=== PATIENT | female | born 1960 | race Caucasian/White ===

== ENCOUNTER 2018-08-17 01:38 | Inpatient (IN) | payer OTHER ==
[~2018-08-17] VITALS: Ht 167.6 cm; Wt 112.4 kg
[2018-08-17] MEDS ORDERED: PRED10TA PO (02:07)
[2018-08-17] MEDS ORDERED: TIZA2TAB PO (02:07)
[2018-08-17] MEDS ORDERED: OXYC1TAB8 PO (02:07)
[2018-08-17] MEDS ORDERED: GABA600T2 PO (02:07)
[2018-08-17 02:26] LABS: MEAN CORPUSCULAR HEMOGLOBIN 31.8 pg (27.0-34.8); MEAN CORPUSCULAR HGB CONC 34.3 g/dL (32.4-35.8); MEAN CORPUSCULAR VOLUME 92.6 fL (80-100); MEAN PLATELET VOLUME 7.5 fL (7.4-10.4); PLATELET COUNT 223 x10^3/uL (130-400); RED BLOOD COUNT 4.29 x10^6/uL (3.82-5.3); RED CELL DISTRIBUTION WIDTH 13.1 % (9.6-15.2)
[2018-08-17 02:30] LABS: INTERNATIONAL NORMALIZED RATIO 1.38 (0.93-1.1); PROTHROMBIN TIME 14.4 Seconds (9.6-11.5)
[2018-08-17 02:33] LABS: ALANINE AMINOTRANSFERASE 14 U/L (12-78); ALBUMIN 2.7 g/dL (3.4-5.0); ANION GAP 18 mmol/L (5-15); CALCIUM 8.4 mg/dL (8.5-10.1); CHLORIDE 96 mmol/L (98-107); CREATININE 2.45 mg/dL (0.55-1.02)
[2018-08-17 02:37] LABS: ALKALINE PHOSPHATASE 70 U/L (45-117); TOTAL PROTEIN 6.6 g/dL (6.4-8.2); TROPONIN I < 0.015 ng/mL (0.000-0.045)
[2018-08-17 03:20] LABS: MD YES
[2018-08-17 03:23] LABS: BANDS%(MANUAL) 7 % (0-7); LYMPH#(MANUAL) 1.93 x10^3/uL (1-3.4); LYMPHS% (MANUAL) 9 % (22-44); METAMYELOCYTES# (MANUAL) 0.21 x10^3/uL (0-0); METAMYELOCYTES% (MANUAL) 1 % (0-1); MONOS#(MANUAL) 1.07 x10^3/uL (0.3-2.7); MONOS% (MANUAL) 5 % (2-9); SEG#(MANUAL) 16.69 x10^3/uL (1.8-6.8); SEGS% (MANUAL) 78 % (42-75)
[2018-08-17 03:24] LABS: <PLATELET ESTIMATE> ADEQUATE; <PLT MORPHOLOGY> NORMAL PLT MORPH; ANISOCYTOSIS 1+; POLYCHROMASIA 1+
[2018-08-17] MEDS ORDERED: SODIUM CHLORIDE 0.9% 1,000 ML IV ONE (04:01)
[2018-08-17] MEDS ORDERED: MORPHINE SULFATE 4 MG/ML, 1ML IVPush PRN (04:30)
[2018-08-17] MEDS ORDERED: ONDANSETRON 2MG/ML, 2ML IVPush PRN ×2 (04:30→05:30)
[2018-08-17] MEDS: SODIUM CHLORIDE 0.9% 1,000 ML IV SCH ×3 (05:12→21:00)
[2018-08-17] MEDS: METRONIDAZOLE PMX 500MG/100ML 100 ML IV SCH ×3 (05:30→21:00)
[2018-08-17] MEDS ORDERED: DOCUSATE 100 MG CAPSULE PO PRN (05:30)
[2018-08-17] MEDS ORDERED: GUAIFENESIN/COD200MG-20MG/10ML LIQUID PO PRN (05:30)
[2018-08-17] MEDS ORDERED: hydrALAzine 20 MG/ML, 1ML IVPush PRN (05:30)
[2018-08-17] MEDS ORDERED: ACETAMINOPHEN 325 MG TABLET PO PRN (05:30)
[2018-08-17] MEDS: CEFTRIAXONE PMX 2GM/50ML 50 ML IV SCH (05:30)
[2018-08-17] MEDS ORDERED: morphine SULFATE 10 MG/ML, 1ML IVPush PRN (05:30)
[2018-08-17] MEDS: POTASSIUM CHLORIDE 20 MEQ TAB.ER.PRT PO SCH ×2 (06:00→09:07)
[2018-08-17 06:25] VITALS: BP 95/61
[2018-08-17] MEDS ORDERED: TEMPLATE NON-FORMULARY MED. (Gabapentin** 600 MG) PO SCH (09:00)
[2018-08-17] MEDS ORDERED: SODIUM CHLORIDE 0.9% 1,000ML IVBOLUS ONE (09:00)
[2018-08-17] MEDS: TIZANIDINE 2MG TABLET PO SCH (09:00)
[2018-08-17 13:25] VITALS: BP 98/67
[2018-08-17 15:24] LABS: CLOSTRIDIUM DIFFICILE ANTIGEN NEGATIVE; CLOSTRIDIUM DIFFICILE TOXIN NEGATIVE (Negative)
[2018-08-17 16:09] LABS: MICROSCOPIC INDICATED
[2018-08-17 16:30] LABS: ANION GAP 16 mmol/L (5-15); CALCIUM 8.4 mg/dL (8.5-10.1); CHLORIDE 104 mmol/L (98-107); CREATININE 1.76 mg/dL (0.55-1.02)
[2018-08-17 16:50] LABS: CULTURE INDICATED? NO
[2018-08-17] MEDS ORDERED: MOVIPREP POWDER 1 PREP KIT PO ONE (17:00)
[2018-08-17 19:31] VITALS: BP 101/67
[2018-08-18 02:17] VITALS: BP 102/68
[2018-08-18] MEDS: SODIUM CHLORIDE 0.9% 1,000 ML IV SCH ×2 (03:40→08:54)
[2018-08-18] MEDS: CEFTRIAXONE PMX 2GM/50ML 50 ML IV SCH (05:12)
[2018-08-18 05:34] LABS: ANION GAP 12 mmol/L (5-15); CALCIUM 8.1 mg/dL (8.5-10.1); CHLORIDE 108 mmol/L (98-107); CREATININE 1.01 mg/dL (0.55-1.02)
[2018-08-18 05:36] LABS: MEAN CORPUSCULAR HEMOGLOBIN 32.2 pg (27.0-34.8); MEAN CORPUSCULAR HGB CONC 34.7 g/dL (32.4-35.8); MEAN CORPUSCULAR VOLUME 92.8 fL (80-100); MEAN PLATELET VOLUME 7.5 fL (7.4-10.4); PLATELET COUNT 178 x10^3/uL (130-400); RED BLOOD COUNT 3.62 x10^6/uL (3.82-5.3); RED CELL DISTRIBUTION WIDTH 13.3 % (9.6-15.2)
[2018-08-18] MEDS: METRONIDAZOLE PMX 500MG/100ML 100 ML IV SCH ×3 (05:57→21:31)
[2018-08-18 06:02] LABS: MD YES
[2018-08-18 06:03] LABS: EOS#(MANUAL) 0.13 x10^3/uL (0.0-0.4); EOS% (MANUAL) 1 % (1-7); LYMPH#(MANUAL) 1.63 x10^3/uL (1-3.4); LYMPHS% (MANUAL) 13 % (22-44); MONOS#(MANUAL) 0.75 x10^3/uL (0.3-2.7); MONOS% (MANUAL) 6 % (2-9); MYELOCYTES# (MANUAL) 0.25 x10^3/uL (0-0); MYELOCYTES% (MANUAL) 2 % (0-0); SEG#(MANUAL) 8.38 x10^3/uL (1.8-6.8); SEGS% (MANUAL) 67 % (42-75)
[2018-08-18 06:04] LABS: BAND#(MANUAL) 1.25 x10^3/uL; BANDS%(MANUAL) 10 % (0-7); METAMYELOCYTES# (MANUAL) 0.13 x10^3/uL (0-0); METAMYELOCYTES% (MANUAL) 1 % (0-1)
[2018-08-18 06:06] LABS: ANISOCYTOSIS 1+; POLYCHROMASIA 1+
[2018-08-18 06:07] LABS: <PLATELET ESTIMATE> ADEQUATE; <PLT MORPHOLOGY> NORMAL PLT MORPH
[2018-08-18 08:23] VITALS: BP 105/70
[2018-08-18] MEDS: TIZANIDINE 2MG TABLET PO SCH (08:54)
[2018-08-18] MEDS ORDERED: POTASSIUM PHOSPHATE 44 MEQ in SODIUM CHLORIDE 0.9% 500 ML IV ONE (09:30)
[2018-08-18] MEDS: POTASSIUM CHLORIDE 40 MEQ in SODIUM CHLORIDE 0.45% 1,000 ML IV SCH ×2 (10:12→21:06)
[2018-08-18] MEDS ORDERED: GOLYTELY 4,000ML ORAL.SOL PO ONE (11:00)
[2018-08-18] MEDS: POTASSIUM CHLORIDE 20 MEQ TAB.ER.PRT PO SCH ×2 (14:16→17:30)
[2018-08-18 15:46] VITALS: BP 108/72
[2018-08-18 16:24] LABS: ANION GAP 10 mmol/L (5-15); CALCIUM 8.1 mg/dL (8.5-10.1); CHLORIDE 108 mmol/L (98-107); CREATININE 0.87 mg/dL (0.55-1.02)
[2018-08-18 21:00] VITALS: BP_SYST 105
[2018-08-18] MEDS ORDERED: POTASSIUM CHLORIDE 20 MEQ TAB.ER.PRT PO ONE (22:30)
[2018-08-19 03:56] VITALS: BP 122/84
[2018-08-19] MEDS: CEFTRIAXONE PMX 2GM/50ML 50 ML IV SCH (04:55)
[2018-08-19] MEDS: POTASSIUM CHLORIDE 40 MEQ in SODIUM CHLORIDE 0.45% 1,000 ML IV SCH ×3 (04:55→20:32)
[2018-08-19 05:52] LABS: MEAN CORPUSCULAR HEMOGLOBIN 31.6 pg (27.0-34.8); MEAN PLATELET VOLUME 7.5 fL (7.4-10.4); PLATELET COUNT 178 x10^3/uL (130-400); RED BLOOD COUNT 3.64 x10^6/uL (3.82-5.3); RED CELL DISTRIBUTION WIDTH 13.2 % (9.6-15.2)
[2018-08-19 06:02] LABS: ANION GAP 12 mmol/L (5-15); CHLORIDE 109 mmol/L (98-107)
[2018-08-19] MEDS: METRONIDAZOLE PMX 500MG/100ML 100 ML IV SCH ×3 (06:03→23:04)
[2018-08-19 06:05] LABS: CREATININE 0.62 mg/dL (0.55-1.02)
[2018-08-19 06:10] LABS: MD YES
[2018-08-19 06:12] LABS: ANISOCYTOSIS 1+; BAND#(MANUAL) 0.45 x10^3/uL; BANDS%(MANUAL) 4 % (0-7); LYMPH#(MANUAL) 1.24 x10^3/uL (1-3.4); LYMPHS% (MANUAL) 11 % (22-44); METAMYELOCYTES# (MANUAL) 0.23 x10^3/uL (0-0); METAMYELOCYTES% (MANUAL) 2 % (0-1); MONOS#(MANUAL) 0.79 x10^3/uL (0.3-2.7); MONOS% (MANUAL) 7 % (2-9); POLYCHROMASIA 1+; SEG#(MANUAL) 8.59 x10^3/uL (1.8-6.8); SEGS% (MANUAL) 76 % (42-75)
[2018-08-19 06:13] LABS: <PLATELET ESTIMATE> ADEQUATE; <PLT MORPHOLOGY> NORMAL PLT MORPH
[2018-08-19 06:55] VITALS: BP_SYST 106; BP_SYST 135; BP_DIAS 73; BP_DIAS 79
[2018-08-19] MEDS ORDERED: PROPOFOL 10 MG/ML, 20ML ONE (07:39)
[2018-08-19] MEDS ORDERED: LIDOCAINE-MPF 2% ,5ML ONE (07:39)
[2018-08-19] MEDS ORDERED: ACETAMINOPHEN 325 MG TABLET PO PRN (08:00)
[2018-08-19] MEDS ORDERED: ONDANSETRON 2MG/ML, 2ML IV PRN (08:00)
[2018-08-19] MEDS ORDERED: OXYcodone 5 MG/5 ML ORAL.SOL UDC PO PRN (08:00)
[2018-08-19] MEDS ORDERED: ONDANSETRON ODT 8 MG PO PRN (08:00)
[2018-08-19] MEDS ORDERED: FENTANYL PF 100 MCG/2ML IV PRN (08:00)
[2018-08-19] MEDS ORDERED: POTASSIUM PHOSPHATE 44 MEQ in SODIUM CHLORIDE 0.9% 500 ML IV ONE (08:30)
[2018-08-19] MEDS: TIZANIDINE 2MG TABLET PO SCH (09:00)
[2018-08-19] MEDS: OMEPRAZOLE 20 MG CAPSULE.DR PO SCH (10:02)
[2018-08-19 14:32] VITALS: BP 114/72
[2018-08-19 21:55] VITALS: BP 119/79
[2018-08-20 01:08] VITALS: BP 124/82
[2018-08-20 05:18] LABS: MEAN CORPUSCULAR HEMOGLOBIN 32.1 pg (27.0-34.8); MEAN CORPUSCULAR HGB CONC 34.2 g/dL (32.4-35.8); MEAN PLATELET VOLUME 7.7 fL (7.4-10.4); PLATELET COUNT 175 x10^3/uL (130-400); RED CELL DISTRIBUTION WIDTH 13.6 % (9.6-15.2)
[2018-08-20 05:23] LABS: CHLORIDE 108 mmol/L (98-107)
[2018-08-20 05:29] LABS: ANION GAP 11 mmol/L (5-15); CALCIUM 7.9 mg/dL (8.5-10.1); CREATININE 0.62 mg/dL (0.55-1.02)
[2018-08-20] MEDS: CEFTRIAXONE PMX 2GM/50ML 50 ML IV SCH (05:34)
[2018-08-20 05:48] LABS: MD YES
[2018-08-20 05:50] LABS: BAND#(MANUAL) 0.54 x10^3/uL; BANDS%(MANUAL) 5 % (0-7); LYMPH#(MANUAL) 1.62 x10^3/uL (1-3.4); LYMPHS% (MANUAL) 15 % (22-44); METAMYELOCYTES# (MANUAL) 0.22 x10^3/uL (0-0); METAMYELOCYTES% (MANUAL) 2 % (0-1); MONOS#(MANUAL) 0.32 x10^3/uL (0.3-2.7); MONOS% (MANUAL) 3 % (2-9); SEGS% (MANUAL) 75 % (42-75)
[2018-08-20 05:52] LABS: <PLATELET ESTIMATE> ADEQUATE; <PLT MORPHOLOGY> NORMAL PLT MORPH; ANISOCYTOSIS 1+; POLYCHROMASIA 1+
[2018-08-20] MEDS: OMEPRAZOLE 20 MG CAPSULE.DR PO SCH (06:45)
[2018-08-20] MEDS: METRONIDAZOLE PMX 500MG/100ML 100 ML IV SCH ×2 (06:45→14:52)
[2018-08-20 09:00] VITALS: BP 116/74
[2018-08-20] MEDS: TIZANIDINE 2MG TABLET PO SCH (09:00)
[2018-08-20] MEDS: NEUTRA PHOS K 250 MG TABLET PO SCH ×3 (09:53→21:29)
[2018-08-20 13:27] VITALS: BP 119/81
[2018-08-20 20:13] VITALS: BP 115/77
[2018-08-21 01:43] VITALS: BP 125/83
[2018-08-21] MEDS: OMEPRAZOLE 20 MG CAPSULE.DR PO SCH (05:58)
[2018-08-21 06:00] LABS: MEAN CORPUSCULAR HEMOGLOBIN 31.2 pg (27.0-34.8); MEAN CORPUSCULAR HGB CONC 33.5 g/dL (32.4-35.8); MEAN CORPUSCULAR VOLUME 93.2 fL (80-100); MEAN PLATELET VOLUME 7.5 fL (7.4-10.4); PLATELET COUNT 212 x10^3/uL (130-400); RED BLOOD COUNT 3.57 x10^6/uL (3.82-5.3); RED CELL DISTRIBUTION WIDTH 13.3 % (9.6-15.2)
[2018-08-21 06:07] LABS: ANION GAP 10 mmol/L (5-15); CHLORIDE 107 mmol/L (98-107); CREATININE 0.63 mg/dL (0.55-1.02)
[2018-08-21 06:27] LABS: BASOPHILS # (AUTO) 0.02 x10^3/uL (0-0.1); BASOPHILS % (AUTO) 0 % (0-1); EOSINOPHILS # (AUTO) 0.02 x10^3/uL (0-0.4); EOSINOPHILS % (AUTO) 0 % (1-7); LYMPHOCYTES % (AUTO) 20 % (22-44); MD SCAN; MONOCYTES # (AUTO) 0.75 x10^3/uL (0.2-0.8); MONOCYTES % (AUTO) 7 % (2-9); NEUTROPHILS # (AUTO) 8.47 x10^3/uL (1.8-6.8); NEUTROPHILS % (AUTO) 73 % (42-75)
[2018-08-21 08:21] VITALS: BP 127/83
[2018-08-21] MEDS: TIZANIDINE 2MG TABLET PO SCH (09:00)
[2018-08-21] MEDS: NEUTRA PHOS K 250 MG TABLET PO SCH (09:29)
[2018-08-21] MEDS ORDERED: POTASSIUM PHOSPHATE 22 MEQ in SODIUM CHLORIDE 0.9% 500 ML IV ONE (12:00)
[2018-08-21] MEDS ORDERED: MAGNESIUM SULFATE PMX 2GM/50ML 50 ML IV ONE (12:00)
[2018-08-21 14:59] VITALS: BP 126/86
[2018-08-21 21:59] VITALS: BP 144/93
[2018-08-22 01:27] VITALS: BP 126/87
[2018-08-22] MEDS: OMEPRAZOLE 20 MG CAPSULE.DR PO SCH (06:00)
[2018-08-22 07:19] VITALS: BP 125/79
[2018-08-22] MEDS: TIZANIDINE 2MG TABLET PO SCH (09:00)
[2018-08-22 12:41] VITALS: BP 118/79
[2018-08-22] MEDS: OXYcodone IR 5MG TABLET PO PRN ×2 (18:08→22:09)
[2018-08-22 19:34] VITALS: BP 115/81
[2018-08-23 01:43] VITALS: BP 117/78
[2018-08-23] MEDS: OXYcodone IR 5MG TABLET PO PRN ×2 (04:24→12:07)
[2018-08-23] MEDS: OMEPRAZOLE 20 MG CAPSULE.DR PO SCH (05:34)
[2018-08-23 06:23] VITALS: BP 108/70
[2018-08-23] MEDS: TIZANIDINE 2MG TABLET PO SCH (08:42)
[2018-08-23] MEDS ORDERED: FUROSEMIDE 20 MG/2 ML IV ONE (11:30)
[2018-08-23] MEDS ORDERED: DOCU-131 PO (12:32)
[2018-08-23] MEDS ORDERED: OMEP-110 PO (12:32)
[2018-08-23] MEDS ORDERED: PRED20TA PO (12:32)
[2018-08-23 13:39] VITALS: BP 130/82
[2018-08-23 17:44] VITALS: BP 117/82
== END 2018-08-23 17:53 | DRG 386 ==
LOC: ED 03:39 → EDIP 04:01 → 4NOR 06:20
PROVIDERS: ADMIT Internal Medicine; ATTEND Internal Medicine
PROC: 0T9B70Z Drainage of Bladder with Drainage Device, Via Natural or Artificial Opening (ICD-10-PCS; 2018-08-17)
PROC: 0DBN8ZX Excision of Sigmoid Colon, Via Natural or Artificial Opening Endoscopic, Diagnostic (ICD-10-PCS; 2018-08-19)
PROC: 0DBP8ZX Excision of Rectum, Via Natural or Artificial Opening Endoscopic, Diagnostic (ICD-10-PCS; principal; 2018-08-19 07:30)
DX: K51.911 Ulcerative colitis, unspecified with rectal bleeding (principal); N17.9 Acute kidney failure, unspecified; E87.1 Hypo-osmolality and hyponatremia; E44.0 Moderate protein-calorie malnutrition; D68.9 Coagulation defect, unspecified; E87.6 Hypokalemia; E83.39 Other disorders of phosphorus metabolism; I10 Essential (primary) hypertension; M16.11 Unilateral primary osteoarthritis, right hip; D64.9 Anemia, unspecified; K80.20 Calculus of gallbladder without cholecystitis without obstruction; G89.29 Other chronic pain; Z88.2 Allergy status to sulfonamides
CPT/HCPCS: 36415; 71045; 74176; 80048; 80053; 81001; 82436; 82438; 82570; 83690; 83735; 83935; 84100; 84133; 84300; 84302; 84484; 84999; 85014; 85018; 85025; 85610; 86850; 86900; 87046; 87205; 87324; 87427; 88305; 89055; 93005; 99291; G0378; J0696; J2704; J3480; J3490; J1940; J3475; J7030; J7040; J7512

== ENCOUNTER 2018-09-08 22:05 | Inpatient (IN) | payer OTHER ==
[~2018-09-08] VITALS: Ht 170.2 cm; Wt 107.8 kg
[~2018-09-08 22:05] MED LIST: DOCU-131 PO; GABA600T2 PO; OMEP-110 PO; OXYC1TAB8 PO; PRED10TA PO; PRED20TA PO; TIZA2TAB PO
[2018-09-08] MEDS ORDERED: SODIUM CHLORIDE 0.9% 1,000 ML IV ONE (22:18)
--- NOTE | 2018-09-08 22:45 | NUR ---
PT BIB [facility] C/O SOB W/ MOVEMENT AND ABD PAINx9 DAYS. STATES RECENT HOSPITALIZATION FOR UC AND UTI. DENIES CP. DENIES BLOOD IN STOOL/LOOSE STOOLS. DENIES FEVERS. STATES "WOOZY WHEN I STAND UP SINCE I LEFT THE HOSPITAL." ALL MONITORING APPLIED. VSS. CALL LIGHT WITHIN REACH. IV INFUSING APPROPRIATELY. UNABLE TO COLLECT UA. PT USED BEDSIDE COMMODE AND STOOL AND URINE INTERMINGLING IN COMMODE.
[2018-09-08 23:30] LABS: BASOPHILS # (AUTO) 0.01 x10^3/uL (0-0.1); BASOPHILS % (AUTO) 0 % (0-1); EOSINOPHILS # (AUTO) 0.01 x10^3/uL (0-0.4); EOSINOPHILS % (AUTO) 0 % (1-7); LYMPHOCYTES # (AUTO) 1.11 x10^3/uL (1-3.4); LYMPHOCYTES % (AUTO) 12 % (22-44); MD NO; MEAN CORPUSCULAR HEMOGLOBIN 32.2 pg (27.0-34.8); MEAN CORPUSCULAR HGB CONC 34.3 g/dL (32.4-35.8); MEAN CORPUSCULAR VOLUME 93.8 fL (80-100); MEAN PLATELET VOLUME 7.2 fL (7.4-10.4); MONOCYTES # (AUTO) 0.14 x10^3/uL (0.2-0.8); MONOCYTES % (AUTO) 2 % (2-9); NEUTROPHILS # (AUTO) 8.14 x10^3/uL (1.8-6.8); NEUTROPHILS % (AUTO) 87 % (42-75); PLATELET COUNT 270 x10^3/uL (130-400); RED BLOOD COUNT 4.11 x10^6/uL (3.82-5.3); RED CELL DISTRIBUTION WIDTH 14.6 % (9.6-15.2)
[2018-09-08 23:31] LABS: INTERNATIONAL NORMALIZED RATIO 1.33 (0.93-1.1); PROTHROMBIN TIME 13.9 Seconds (9.6-11.5)
--- NOTE | 2018-09-08 23:31 | NUR ---
VSS. CALL LIGHT WITHIN REACH. NO IMMEDIATE NEEDS AT THIS TIME. AWAITING LAB RESULTS.
[2018-09-08 23:33] LABS: ALBUMIN 2.3 g/dL (3.4-5.0); ANION GAP 14 mmol/L (5-15); CALCIUM 7.8 mg/dL (8.5-10.1); CHLORIDE 99 mmol/L (98-107)
[2018-09-08 23:39] LABS: ALANINE AMINOTRANSFERASE 13 U/L (12-78); ALKALINE PHOSPHATASE 75 U/L (45-117); BILIRUBIN,TOTAL 1.5 mg/dL (0.2-1.0); CREATININE 0.77 mg/dL (0.55-1.02); TOTAL PROTEIN 5.8 g/dL (6.4-8.2); TROPONIN I < 0.015 ng/mL (0.000-0.045)
[2018-09-08] MEDS ORDERED: CEFTRIAXONE PMX 1GM/50ML 0 ML ONE (23:49)
[2018-09-08] MEDS ORDERED: NS + 40MEQ KCL 1,000 ML IV ONE (23:50)
[2018-09-09] MEDS ORDERED: POTASSIUM CHLORIDE 40 MEQ in SODIUM CHLORIDE 0.9% 500 ML IV ONE
[2018-09-09] MEDS ORDERED: AZITHROMYCIN 500 MG in SODIUM CHLORIDE 0.9% 250 ML IVPB ONE
[2018-09-09] MEDS ORDERED: CEFTRIAXONE 1,000 MG in SODIUM CHLORIDE 0.9% 50 ML IVPB ONE
--- NOTE | 2018-09-09 00:02 | NUR ---
THIS RN CALLED RX TO CONFIRM POTASSIUM CHLORIDE AND ROCEPHIN CAN GO THROUGH SAME IV. RX CONFIRMED ABILITY TO START BOTH. BOTH RUNNING APPROPRIATELY. NADN. NO IMMEDIATE NEEDS FROM PT. PT TBADM. AWAITING ADM ORDERS.
--- NOTE | 2018-09-09 00:27 | NUR ---
BREAK RN: PT AGREES TO STRAIGHT CATH FOR UA, HOSPITALIST AT BEDSIDE FOR EVAL, WILL CONTINUE POC WHEN EVAL COMPLETED.
[2018-09-09] MEDS ORDERED: ONDANSETRON ODT 4 MG PO PRN (00:30)
[2018-09-09] MEDS ORDERED: hydrALAzine 20 MG/ML, 1ML IVPush PRN (00:30)
[2018-09-09] MEDS ORDERED: LIDODERM 5% PATCH TD PRN (00:30)
[2018-09-09] MEDS ORDERED: TEMAZEPAM 15 MG CAPSULE PO PRN (00:30)
[2018-09-09] MEDS ORDERED: DOCUSATE 100 MG CAPSULE PO PRN (00:30)
--- NOTE | 2018-09-09 00:51 | NUR ---
need iv for cta
--- NOTE | 2018-09-09 01:02 | NUR ---
PT REFUSING CONTRAST CT AT THIS TIME. PT EDUCATED AND STILL REFUSING CT STILL. NOTIFIED. PT TO BE TRANPSORTED.
[2018-09-09 01:09] LABS: MICROSCOPIC INDICATED
--- NOTE | 2018-09-09 01:12 | NUR ---
THIS RN CALLED RX. RX STATES RUNNING AZITHROMYCIN AND POTASSIUM THROUGH SAME IV IS OK.
[2018-09-09 01:22] LABS: CULTURE INDICATED? YES
[2018-09-09] MEDS: ENOXAPARIN 40 MG/0.4 ML SQ SCH (01:59)
[2018-09-09] MEDS ORDERED: DICL75TA2 PO (02:08)
[2018-09-09 02:10] VITALS: BP 103/70
[2018-09-09 06:57] LABS: CLOSTRIDIUM DIFFICILE TOXIN NEGATIVE (Negative)
[2018-09-09 06:58] LABS: CLOSTRIDIUM DIFFICILE ANTIGEN POSITIVE
[2018-09-09 07:58] LABS: ANION GAP 8 mmol/L (5-15); CALCIUM 6.6 mg/dL (8.5-10.1); CHLORIDE 104 mmol/L (98-107); CREATININE 0.46 mg/dL (0.55-1.02)
[2018-09-09 08:16] VITALS: BP 103/70
[2018-09-09] MEDS: POTASSIUM CHLORIDE 20 MEQ TAB.ER.PRT PO SCH ×3 (09:56→21:23)
[2018-09-09] MEDS: CEFTRIAXONE PMX 1GM/50ML 50 ML IV SCH ×2 (11:43→23:34)
[2018-09-09 12:13] VITALS: BP 94/64
[2018-09-09 19:51] VITALS: BP 98/68
[2018-09-09] MEDS ORDERED: AZITHROMYCIN 500 MG in SODIUM CHLORIDE 0.9% 250 ML IV SCH (23:30)
[2018-09-10] MEDS: ENOXAPARIN 40 MG/0.4 ML SQ SCH ×2 (01:01→23:03)
[2018-09-10 01:29] VITALS: BP 105/72
[2018-09-10 06:17] LABS: BASOPHILS # (AUTO) 0.02 x10^3/uL (0-0.1); BASOPHILS % (AUTO) 0 % (0-1); EOSINOPHILS % (AUTO) 2 % (1-7); LYMPHOCYTES # (AUTO) 2.11 x10^3/uL (1-3.4); LYMPHOCYTES % (AUTO) 35 % (22-44); MD NO; MEAN CORPUSCULAR HEMOGLOBIN 31.4 pg (27.0-34.8); MEAN CORPUSCULAR HGB CONC 33.6 g/dL (32.4-35.8); MEAN CORPUSCULAR VOLUME 93.2 fL (80-100); MEAN PLATELET VOLUME 6.8 fL (7.4-10.4); MONOCYTES # (AUTO) 0.26 x10^3/uL (0.2-0.8); MONOCYTES % (AUTO) 4 % (2-9); NEUTROPHILS # (AUTO) 3.48 x10^3/uL (1.8-6.8); NEUTROPHILS % (AUTO) 58 % (42-75); PLATELET COUNT 235 x10^3/uL (130-400); RED BLOOD COUNT 3.42 x10^6/uL (3.82-5.3); RED CELL DISTRIBUTION WIDTH 15.2 % (9.6-15.2)
[2018-09-10 06:24] LABS: ANION GAP 7 mmol/L (5-15); CALCIUM 7.4 mg/dL (8.5-10.1); CHLORIDE 105 mmol/L (98-107); CREATININE 0.36 mg/dL (0.55-1.02)
[2018-09-10 08:05] VITALS: BP 102/70
[2018-09-10] MEDS: POTASSIUM CHLORIDE 20 MEQ TAB.ER.PRT PO SCH ×3 (09:29→21:22)
[2018-09-10] MEDS: CEFTRIAXONE PMX 1GM/50ML 50 ML IV SCH (12:58)
[2018-09-10] MEDS ORDERED: MAGNESIUM SULFATE PMX 2GM/50ML 50 ML IV ONE (13:30)
[2018-09-10 14:30] LABS: MICROSCOPIC INDICATED
[2018-09-10 16:52] LABS: CULTURE INDICATED? YES
[2018-09-10 17:08] VITALS: BP 96/66
[2018-09-10] MEDS: VANCOMYCIN 50 MG/ML ORAL SUSP PO SCH ×2 (17:59→23:03)
[2018-09-10 20:00] VITALS: BP_SYST 120; BP_SYST 95; BP_DIAS 65; BP_DIAS 71
[2018-09-10] MEDS: CEFDINIR 300 MG CAPSULE PO SCH (21:22)
[2018-09-11 02:00] VITALS: BP 94/63
[2018-09-11] MEDS: VANCOMYCIN 50 MG/ML ORAL SUSP PO SCH ×4 (05:17→22:36)
[2018-09-11 08:00] VITALS: BP 114/78
[2018-09-11] MEDS: AZITHROMYCIN 500 MG TABLET PO SCH (09:47)
[2018-09-11] MEDS: POTASSIUM CHLORIDE 20 MEQ TAB.ER.PRT PO SCH (09:47)
[2018-09-11] MEDS: CEFDINIR 300 MG CAPSULE PO SCH ×2 (09:47→22:36)
[2018-09-11 10:15] LABS: ANION GAP 8 mmol/L (5-15); CALCIUM 7.3 mg/dL (8.5-10.1); CHLORIDE 105 mmol/L (98-107); CREATININE 0.36 mg/dL (0.55-1.02)
[2018-09-11 16:12] VITALS: BP 108/76
[2018-09-11 20:06] VITALS: BP 97/67
[2018-09-11] MEDS: ENOXAPARIN 40 MG/0.4 ML SQ SCH (22:36)
[2018-09-12 01:46] VITALS: BP 108/73
[2018-09-12 02:12] VITALS: BP 106/69
[2018-09-12] MEDS: VANCOMYCIN 50 MG/ML ORAL SUSP PO SCH ×4 (05:56→23:41)
[2018-09-12 07:52] VITALS: BP 106/72
[2018-09-12] MEDS ORDERED: POTASSIUM CHLORIDE 20 MEQ TAB.ER.PRT PO SCH (09:00)
[2018-09-12] MEDS: CEFDINIR 300 MG CAPSULE PO SCH ×2 (10:16→21:16)
[2018-09-12] MEDS: AZITHROMYCIN 500 MG TABLET PO SCH (10:16)
[2018-09-12 14:00] VITALS: BP 134/87
[2018-09-12 20:00] VITALS: BP 111/70
[2018-09-12] MEDS: ENOXAPARIN 40 MG/0.4 ML SQ SCH (23:41)
[2018-09-13 02:05] VITALS: BP 120/84
[2018-09-13] MEDS: VANCOMYCIN 50 MG/ML ORAL SUSP PO SCH ×4 (05:30→22:01)
[2018-09-13 07:14] VITALS: BP 113/76
[2018-09-13] MEDS: CEFDINIR 300 MG CAPSULE PO SCH ×2 (09:12→21:00)
[2018-09-13] MEDS: AZITHROMYCIN 500 MG TABLET PO SCH (09:12)
[2018-09-13] MEDS: POTASSIUM CHLORIDE 20 MEQ TAB.ER.PRT PO SCH (09:12)
[2018-09-13 11:42] LABS: ALANINE AMINOTRANSFERASE 14 U/L (12-78); ALBUMIN 1.8 g/dL (3.4-5.0); ANION GAP 7 mmol/L (5-15); CALCIUM 7.6 mg/dL (8.5-10.1); CHLORIDE 108 mmol/L (98-107); CREATININE 0.45 mg/dL (0.55-1.02)
[2018-09-13 11:44] LABS: ALKALINE PHOSPHATASE 68 U/L (45-117); BILIRUBIN,TOTAL 0.4 mg/dL (0.2-1.0)
[2018-09-13 12:05] VITALS: BP 115/77
[2018-09-13 20:00] VITALS: BP 115/78
[2018-09-14] MEDS: ENOXAPARIN 40 MG/0.4 ML SQ SCH ×2 (00:34→23:51)
[2018-09-14 02:00] VITALS: BP 112/80
[2018-09-14] MEDS: VANCOMYCIN 50 MG/ML ORAL SUSP PO SCH ×4 (05:12→23:51)
[2018-09-14 06:48] VITALS: BP 108/73
[2018-09-14] MEDS: POTASSIUM CHLORIDE 20 MEQ TAB.ER.PRT PO SCH (08:25)
[2018-09-14] MEDS: CEFDINIR 300 MG CAPSULE PO SCH ×2 (08:25→20:05)
[2018-09-14 16:35] VITALS: BP 109/73
[2018-09-14 20:00] VITALS: BP 112/78
[2018-09-15 02:00] VITALS: BP 113/77
[2018-09-15] MEDS: VANCOMYCIN 50 MG/ML ORAL SUSP PO SCH ×3 (05:38→18:22)
[2018-09-15 06:53] VITALS: BP 106/72
[2018-09-15] MEDS: CEFDINIR 300 MG CAPSULE PO SCH ×2 (09:35→21:27)
[2018-09-15] MEDS: POTASSIUM CHLORIDE 20 MEQ TAB.ER.PRT PO SCH (09:35)
[2018-09-15 11:11] LABS: ANION GAP 6 mmol/L (5-15); CALCIUM 7.4 mg/dL (8.5-10.1); CHLORIDE 107 mmol/L (98-107)
[2018-09-15 13:39] VITALS: BP 123/84
[2018-09-15 20:00] VITALS: BP 115/79
[2018-09-16] MEDS: VANCOMYCIN 50 MG/ML ORAL SUSP PO SCH ×4 (00:52→20:31)
[2018-09-16] MEDS: ENOXAPARIN 40 MG/0.4 ML SQ SCH (00:52)
[2018-09-16 02:00] VITALS: BP 117/82
[2018-09-16 06:08] LABS: CALCIUM 7.9 mg/dL (8.5-10.1); CHLORIDE 110 mmol/L (98-107)
[2018-09-16 06:12] LABS: ANION GAP 7 mmol/L (5-15); CREATININE 0.45 mg/dL (0.55-1.02)
[2018-09-16 07:17] VITALS: BP 121/79
[2018-09-16] MEDS: POTASSIUM CHLORIDE 20 MEQ TAB.ER.PRT PO SCH (08:55)
[2018-09-16 14:48] VITALS: BP 119/82
[2018-09-16 19:35] VITALS: BP 100/68
[2018-09-16] MEDS: ACETAMINOPHEN 325 MG TABLET PO PRN (21:09)
[2018-09-17 01:36] VITALS: BP 114/78
[2018-09-17] MEDS: VANCOMYCIN 50 MG/ML ORAL SUSP PO SCH ×4 (01:56→22:08)
[2018-09-17] MEDS: ENOXAPARIN 40 MG/0.4 ML SQ SCH (01:56)
[2018-09-17 07:15] VITALS: BP 118/76
[2018-09-17] MEDS: POTASSIUM CHLORIDE 20 MEQ TAB.ER.PRT PO SCH (10:02)
[2018-09-17 13:43] VITALS: BP 122/74
[2018-09-17 19:25] VITALS: BP 113/77
[2018-09-18 01:07] VITALS: BP 109/72
[2018-09-18] MEDS: ENOXAPARIN 40 MG/0.4 ML SQ SCH (02:48)
[2018-09-18] MEDS: VANCOMYCIN 50 MG/ML ORAL SUSP PO SCH ×4 (02:48→22:49)
[2018-09-18 07:53] VITALS: BP 112/76
[2018-09-18] MEDS: POTASSIUM CHLORIDE 20 MEQ TAB.ER.PRT PO SCH (09:56)
[2018-09-18 14:10] VITALS: BP 116/72
[2018-09-18 18:52] VITALS: BP 106/72
[2018-09-18] MEDS: ACETAMINOPHEN 325 MG TABLET PO PRN (22:57)
[2018-09-19 01:43] VITALS: BP 116/77
[2018-09-19] MEDS: VANCOMYCIN 50 MG/ML ORAL SUSP PO SCH ×4 (03:02→22:07)
[2018-09-19] MEDS: ENOXAPARIN 40 MG/0.4 ML SQ SCH (03:03)
[2018-09-19 07:47] VITALS: BP 101/68
[2018-09-19] MEDS: POTASSIUM CHLORIDE 20 MEQ TAB.ER.PRT PO SCH (09:45)
[2018-09-19 15:09] VITALS: BP 122/68
[2018-09-19 20:00] VITALS: BP 104/71
[2018-09-19] MEDS: ACETAMINOPHEN 325 MG TABLET PO PRN (22:37)
[2018-09-20 02:00] VITALS: BP 113/76
[2018-09-20] MEDS: ENOXAPARIN 40 MG/0.4 ML SQ SCH (03:49)
[2018-09-20] MEDS: VANCOMYCIN 50 MG/ML ORAL SUSP PO SCH ×4 (03:49→22:43)
[2018-09-20 06:09] LABS: BASOPHILS # (AUTO) 0.03 x10^3/uL (0-0.1); BASOPHILS % (AUTO) 1 % (0-1); EOSINOPHILS # (AUTO) 0.04 x10^3/uL (0-0.4); EOSINOPHILS % (AUTO) 1 % (1-7); LYMPHOCYTES # (AUTO) 1.64 x10^3/uL (1-3.4); LYMPHOCYTES % (AUTO) 38 % (22-44); MD NO; MEAN CORPUSCULAR HEMOGLOBIN 32.6 pg (27.0-34.8); MEAN CORPUSCULAR HGB CONC 33.5 g/dL (32.4-35.8); MEAN CORPUSCULAR VOLUME 97.2 fL (80-100); MEAN PLATELET VOLUME 6.7 fL (7.4-10.4); MONOCYTES # (AUTO) 0.29 x10^3/uL (0.2-0.8); MONOCYTES % (AUTO) 7 % (2-9); NEUTROPHILS # (AUTO) 2.31 x10^3/uL (1.8-6.8); NEUTROPHILS % (AUTO) 53 % (42-75); PLATELET COUNT 238 x10^3/uL (130-400); RED BLOOD COUNT 3.09 x10^6/uL (3.82-5.3); RED CELL DISTRIBUTION WIDTH 16.4 % (9.6-15.2)
[2018-09-20 06:14] LABS: ANION GAP 7 mmol/L (5-15); CALCIUM 8.1 mg/dL (8.5-10.1); CHLORIDE 110 mmol/L (98-107); CREATININE 0.44 mg/dL (0.55-1.02)
[2018-09-20 07:17] VITALS: BP 118/76
[2018-09-20] MEDS: POTASSIUM CHLORIDE 20 MEQ TAB.ER.PRT PO SCH (09:41)
[2018-09-20] MEDS ORDERED: VANC1VIA3 PO (12:49)
[2018-09-20] MEDS ORDERED: POTA20TA6 PO (12:49)
[2018-09-20 14:10] VITALS: BP 127/74
[2018-09-20] MEDS: ACETAMINOPHEN 325 MG TABLET PO PRN (18:25)
[2018-09-20 20:00] VITALS: BP 110/74
[2018-09-21 02:00] VITALS: BP 112/76
[2018-09-21] MEDS: VANCOMYCIN 50 MG/ML ORAL SUSP PO SCH ×4 (04:19→21:18)
[2018-09-21] MEDS: ENOXAPARIN 40 MG/0.4 ML SQ SCH (04:19)
[2018-09-21 07:23] VITALS: BP 108/76
[2018-09-21] MEDS: POTASSIUM CHLORIDE 20 MEQ TAB.ER.PRT PO SCH (10:09)
[2018-09-21] MEDS: ACETAMINOPHEN 325 MG TABLET PO PRN ×2 (10:50→23:32)
[2018-09-21 13:17] VITALS: BP 109/62
[2018-09-21 20:00] VITALS: BP 111/75
[2018-09-22 02:00] VITALS: BP 109/71
[2018-09-22] MEDS: VANCOMYCIN 50 MG/ML ORAL SUSP PO SCH ×4 (04:25→21:25)
[2018-09-22] MEDS: ENOXAPARIN 40 MG/0.4 ML SQ SCH (04:25)
[2018-09-22 06:14] LABS: BASOPHILS # (AUTO) 0.03 x10^3/uL (0-0.1); MD NO; MONOCYTES # (AUTO) 0.27 x10^3/uL (0.2-0.8)
[2018-09-22 06:26] LABS: BASOPHILS % (AUTO) 1 % (0-1); EOSINOPHILS # (AUTO) 0.05 x10^3/uL (0-0.4); EOSINOPHILS % (AUTO) 2 % (1-7); LYMPHOCYTES # (AUTO) 1.48 x10^3/uL (1-3.4); LYMPHOCYTES % (AUTO) 45 % (22-44); MEAN CORPUSCULAR HEMOGLOBIN 31.8 pg (27.0-34.8); MEAN CORPUSCULAR HGB CONC 32.8 g/dL (32.4-35.8); MEAN CORPUSCULAR VOLUME 96.9 fL (80-100); MEAN PLATELET VOLUME 6.9 fL (7.4-10.4); MONOCYTES % (AUTO) 8 % (2-9); NEUTROPHILS # (AUTO) 1.45 x10^3/uL (1.8-6.8); NEUTROPHILS % (AUTO) 44 % (42-75); PLATELET COUNT 251 x10^3/uL (130-400); RED BLOOD COUNT 3.23 x10^6/uL (3.82-5.3); RED CELL DISTRIBUTION WIDTH 16.5 % (9.6-15.2)
[2018-09-22 06:31] LABS: ANION GAP 6 mmol/L (5-15); CALCIUM 7.9 mg/dL (8.5-10.1); CHLORIDE 111 mmol/L (98-107); CREATININE 0.41 mg/dL (0.55-1.02)
[2018-09-22 06:55] VITALS: BP 108/79
[2018-09-22] MEDS ORDERED: POTASSIUM CHLORIDE 20 MEQ TAB.ER.PRT PO ONE (07:30)
[2018-09-22] MEDS: POTASSIUM CHLORIDE 20 MEQ TAB.ER.PRT PO SCH (10:05)
[2018-09-22 13:05] VITALS: BP 128/80
[2018-09-22] MEDS: ACETAMINOPHEN 325 MG TABLET PO PRN (21:36)
[2018-09-22 23:03] VITALS: BP 111/69
[2018-09-23] MEDS: VANCOMYCIN 50 MG/ML ORAL SUSP PO SCH ×4 (04:14→21:53)
[2018-09-23] MEDS: ENOXAPARIN 40 MG/0.4 ML SQ SCH (04:15)
[2018-09-23 05:42] VITALS: BP 105/72
[2018-09-23 07:58] VITALS: BP 103/69
[2018-09-23] MEDS: POTASSIUM CHLORIDE 20 MEQ TAB.ER.PRT PO SCH (09:30)
[2018-09-23 13:32] VITALS: BP 114/78
[2018-09-23 20:48] VITALS: BP 111/69
[2018-09-23] MEDS: ACETAMINOPHEN 325 MG TABLET PO PRN (21:54)
[2018-09-24 03:45] VITALS: BP 101/59
[2018-09-24] MEDS: VANCOMYCIN 50 MG/ML ORAL SUSP PO SCH ×4 (04:06→22:28)
[2018-09-24] MEDS: ENOXAPARIN 40 MG/0.4 ML SQ SCH (04:06)
[2018-09-24 05:39] LABS: BASOPHILS # (AUTO) 0.04 x10^3/uL (0-0.1); BASOPHILS % (AUTO) 1 % (0-1); EOSINOPHILS # (AUTO) 0.06 x10^3/uL (0-0.4); EOSINOPHILS % (AUTO) 2 % (1-7); LYMPHOCYTES # (AUTO) 1.49 x10^3/uL (1-3.4); LYMPHOCYTES % (AUTO) 47 % (22-44); MD NO; MEAN CORPUSCULAR HEMOGLOBIN 32.5 pg (27.0-34.8); MEAN CORPUSCULAR HGB CONC 33.7 g/dL (32.4-35.8); MEAN CORPUSCULAR VOLUME 96.3 fL (80-100); MEAN PLATELET VOLUME 6.8 fL (7.4-10.4); MONOCYTES # (AUTO) 0.28 x10^3/uL (0.2-0.8); MONOCYTES % (AUTO) 9 % (2-9); NEUTROPHILS # (AUTO) 1.31 x10^3/uL (1.8-6.8); NEUTROPHILS % (AUTO) 41 % (42-75); PLATELET COUNT 276 x10^3/uL (130-400); RED BLOOD COUNT 3.12 x10^6/uL (3.82-5.3); RED CELL DISTRIBUTION WIDTH 17.5 % (9.6-15.2)
[2018-09-24 05:48] LABS: ANION GAP 8 mmol/L (5-15); CHLORIDE 111 mmol/L (98-107)
[2018-09-24 05:51] LABS: CREATININE 0.42 mg/dL (0.55-1.02)
[2018-09-24 07:50] VITALS: BP 119/78
[2018-09-24] MEDS: POTASSIUM CHLORIDE 20 MEQ TAB.ER.PRT PO SCH (09:36)
[2018-09-24 13:41] VITALS: BP 112/78
[2018-09-24 19:29] VITALS: BP 104/71
[2018-09-24] MEDS: ACETAMINOPHEN 325 MG TABLET PO PRN (22:28)
[2018-09-25 03:12] VITALS: BP 113/73
[2018-09-25] MEDS: VANCOMYCIN 50 MG/ML ORAL SUSP PO SCH ×4 (04:34→21:29)
[2018-09-25] MEDS: ENOXAPARIN 40 MG/0.4 ML SQ SCH (04:34)
[2018-09-25 08:15] VITALS: BP 106/70
[2018-09-25] MEDS: POTASSIUM CHLORIDE 20 MEQ TAB.ER.PRT PO SCH (09:18)
[2018-09-25 11:57] LABS: MEAN CORPUSCULAR HEMOGLOBIN 31.1 pg (27.0-34.8); MEAN CORPUSCULAR HGB CONC 32.4 g/dL (32.4-35.8); MEAN CORPUSCULAR VOLUME 95.8 fL (80-100); MEAN PLATELET VOLUME 6.6 fL (7.4-10.4); PLATELET COUNT 348 x10^3/uL (130-400); RED BLOOD COUNT 3.65 x10^6/uL (3.82-5.3); RED CELL DISTRIBUTION WIDTH 17.1 % (9.6-15.2)
[2018-09-25 12:03] LABS: CHLORIDE 109 mmol/L (98-107)
[2018-09-25 12:12] LABS: ANION GAP 5 mmol/L (5-15); BASOPHILS # (AUTO) 0.05 x10^3/uL (0-0.1); BASOPHILS % (AUTO) 1 % (0-1); CALCIUM 8.3 mg/dL (8.5-10.1); CREATININE 0.45 mg/dL (0.55-1.02); EOSINOPHILS # (AUTO) 0.07 x10^3/uL (0-0.4); EOSINOPHILS % (AUTO) 1 % (1-7); LYMPHOCYTES # (AUTO) 2.29 x10^3/uL (1-3.4); LYMPHOCYTES % (AUTO) 49 % (22-44); MD SCAN; MONOCYTES % (AUTO) 9 % (2-9); NEUTROPHILS # (AUTO) 1.91 x10^3/uL (1.8-6.8); NEUTROPHILS % (AUTO) 41 % (42-75)
[2018-09-25 13:55] VITALS: BP 109/76
[2018-09-25 20:35] VITALS: BP 106/72
[2018-09-26 00:19] VITALS: BP 115/78
[2018-09-26] MEDS: ACETAMINOPHEN 325 MG TABLET PO PRN (00:19)
[2018-09-26] MEDS: VANCOMYCIN 50 MG/ML ORAL SUSP PO SCH ×4 (04:44→22:01)
[2018-09-26] MEDS: ENOXAPARIN 40 MG/0.4 ML SQ SCH (04:44)
[2018-09-26 08:17] VITALS: BP 105/71
[2018-09-26] MEDS: POTASSIUM CHLORIDE 20 MEQ TAB.ER.PRT PO SCH (09:49)
[2018-09-26] MEDS ORDERED: IBUPROFEN 200 MG TABLET PO PRN (12:00)
[2018-09-26] MEDS: CHOLESTYRAMINE LIGHT 4GM PACKET PO SCH (12:26)
[2018-09-26] MEDS: IBUPROFEN 600 MG TABLET PO PRN (12:26)
[2018-09-26 14:25] VITALS: BP 108/69
[2018-09-26 20:38] VITALS: BP 108/72
[2018-09-27] MEDS: IBUPROFEN 600 MG TABLET PO PRN ×3 (00:10→20:43)
[2018-09-27 03:44] VITALS: BP 109/65
[2018-09-27] MEDS: ENOXAPARIN 40 MG/0.4 ML SQ SCH (04:19)
[2018-09-27] MEDS: VANCOMYCIN 50 MG/ML ORAL SUSP PO SCH ×2 (04:19→09:58)
[2018-09-27 07:28] VITALS: BP 108/69
[2018-09-27] MEDS: CHOLESTYRAMINE LIGHT 4GM PACKET PO SCH (09:58)
[2018-09-27] MEDS: POTASSIUM CHLORIDE 20 MEQ TAB.ER.PRT PO SCH (09:58)
[2018-09-27 12:41] VITALS: BP 112/77
[2018-09-27 20:00] VITALS: BP 108/73
[2018-09-28 04:00] VITALS: BP 101/64
[2018-09-28] MEDS: ENOXAPARIN 40 MG/0.4 ML SQ SCH (04:09)
[2018-09-28 06:21] VITALS: BP 112/71
[2018-09-28] MEDS: POTASSIUM CHLORIDE 20 MEQ TAB.ER.PRT PO SCH (09:59)
[2018-09-28] MEDS: CHOLESTYRAMINE LIGHT 4GM PACKET PO SCH (09:59)
[2018-09-28 13:14] VITALS: BP 110/73
[2018-09-28] MEDS ORDERED: CHOL239. PO (13:19)
[2018-09-28] MEDS: IBUPROFEN 600 MG TABLET PO PRN (14:21)
== END 2018-09-28 17:35 | DRG 871 ==
LOC: ED 09-09 00:11 → EDIP 09-09 00:28 → 4EST 09-09 01:41
PROVIDERS: ADMIT Internal Medicine; ATTEND Internal Medicine
PROC: 0T9B70Z Drainage of Bladder with Drainage Device, Via Natural or Artificial Opening (ICD-10-PCS; principal; 2018-09-09)
DX: A41.9 Sepsis, unspecified organism (principal); J15.9 Unspecified bacterial pneumonia; E44.0 Moderate protein-calorie malnutrition; K51.90 Ulcerative colitis, unspecified, without complications; A04.72 Enterocolitis due to Clostridium difficile, not specified as recurrent; E83.42 Hypomagnesemia; E87.6 Hypokalemia; I10 Essential (primary) hypertension; D89.9 Disorder involving the immune mechanism, unspecified; Y95 Nosocomial condition; Z88.8 Allergy status to other drugs, medicaments and biological substances; Z68.37 Body mass index [BMI] 37.0-37.9, adult; Z79.899 Other long term (current) drug therapy
CPT/HCPCS: 36415; 84145; 99285; J3370; 71045; 74176; 80048; 80053; 81001; 82330; 83605; 83735; 83880; 84100; 84484; 85025; 85610; 85730; 87040; 87086; 87324; 87493; 93005; G0378; J0456; J0696; J1650; J3480; J3475; J7030; J7040; J7050